=== PATIENT | female | born 1955 | race Caucasian/White ===

== ENCOUNTER → 2019-03-25 10:09 | Outpatient (CLI) | payer OTHER ==
[2015-10-07 09:29] VITALS: BMI 39.9
[~2019-03-25 10:09] MED LIST: ASPIRIN81 MG PO; GABAPENTIN100 MG PO; GLIMEPIRIDE2 MG PO; GLUCOPHAGE1000 MG PO; ISOSORBIDE MONO30 M1 PO; KLONOPIN0.5 MG PO; LOTRISONE CREAM45 GM TOPICAL; METOPROLOL TART50 MG PO; NORVASC10 MG PO; PLAVIX75 MG PO; PRAVACHOL20 MG PO; PROVENTIL HFA6.7 GM INH; PROZAC40 MG PO; SPIRIVA18 MCG INH; SYMBICORT 80-10.2 GM INH; TRULICITY1.5 MG/0.5 SC; WELLBUTRIN SR150 MG PO; ZESTRIL40 MG PO
--- NOTE | 2019-04-01 14:07 | EC ---
PATIENT:EFREN LERNER FIELDING DATE OF SERVICE: 03/25/19 SEX: F MEDICAL RECORD: [id number] DATE OF : 57 [facility]GE [facility] PATIENT: 63 ADMISSION DATE: 03/25/19 REFERRING PHYSICIAN: INTERPRETING PHYSICIAN: SANJANA PEREZ MD ECHOCARDIOGRAM REPORT ECHO CHARGES 4 ECHO COMPLETE Date: 03/25/19 CLINICAL DIAGNOSIS: ANGINA/SOB/QUEVEDO/MR H/O CAD/HTN ECHOCARDIOGRAPHIC MEASUREMENTS (adult normal given) AC root (d.<3.7cm) 2.9 cm LV Septum d (<1.2 cm> 1.3 cm Valve Excursion 1.0 cm LV Septum (systole) 1.7 cm Left Atria (s.<4.0cm> 3.0 cm LVPW d(<1.2cm) 1.5 cm RV (d.<2.3cm) 2.8 cm LVPW (sytole) 1.5 cm LV diastole(<5.6CM) 5.1 cm MV E-F(>70mm/sec) cm LV systole 2.9 cm LVOT Diameter 1.8 cm MV exc.(>10mm) cm Est.ejection fraction (50-75%) % DOPPLER: LVIT cm/sec A 129 cm/sec E 91.0 cm/sec LA cm/sec RVSP 22.0 mmHg LVOT 80.0 cm/sec AOP1/2T m/s Asc. Ao 287 cm/sec RVOT 72.0 cm/sec RA cm/sec PA 94.0 cm/sec AV Gradient Peak 33.0 mmHg AV Mean 17.0 mmHg AV Area 0.7 cm MV Gradient Peak 6.6 mmHg MV Mean 2.2 mmHg MV Area cm COMMENTS: OP - HC Aging Room Hand: 1 YENNI ISHAN Airplane Pilot Supervisor: 1 Dr. Perez TAPE# PACS Pericardial Effusion N DATE OF SERVICE: FINDINGS: 1. Left ventricular chamber size is within normal limits. Left ventricular systolic function is normal. Overall ejection fraction estimated at 60% to 65%. 2. Left atrium, right atrium, and right ventricular chamber sizes are within normal limits. 3. Valvular structures: Aortic valve demonstrates anch-ku-ewhhnjim calcific aortic stenosis, valve area calculates to 0.7 cm-squared with gradient of 33 mmHg across the valve. The remaining valvular structures have normal structure ECHOCARDIOGRAM REPORT [id number] EFREN LERNER FIELDING and motion. 4. Doppler interrogation elsewise reveals mild mitral regurgitation. No other valvular insufficiency or stenosis. Pulmonary systolic pressure is estimated at 22 mmHg. 5. No evidence of pericardial effusion or left ventricular thrombus. TRANSINT:[id number] Voice Confirmation ID: [id number] DOCUMENT ID: [id number] SANJANA PEREZ MD at 1407 CC: [id number] DICTATION DATE: 03/25/19 1604 INSURANCE AUDITOR: 03/26/19 0012 DEP CLI 03/25/19 [facility] [address] [id number]
--- NOTE | 2019-04-01 14:07 | ST ---
PATIENT:EFREN LERNER MEDICAL RECORD: [id number] SEX: F LOCATION:[facility] ORDER #: ADMISSION DATE: 03/25/19 AGE OF PATIENT: 63 REFERRING PHYSICIAN: INTERPRETING PHYSICIAN: SANJANA RESTREPO MD DATE OF SERVICE: 03/25/2019 PROCEDURE: Nuclear stress test INDICATION: Angina and coronary artery disease, shortness of breath, hypertension. She was exercised on standard Lexiscan protocol with 33 mCi of sestamibi injected at peak stress, 11 mCi used previously for rest images. FINDINGS: Gated SPECT reveals a preserved ejection fraction at 65% with decreased thickening and brightening throughout the inferior segments. SPECT imaging Cardiolite was used as myocardial perfusion agent. There is a fixed perfusion defect inferiorly and apically compatible with previous inferoapical myocardial infarction. There is reversibility laterally. This includes the basal, mid, apical, lateral segments. The degree of reversibility is mild to moderate. The amount of myocardium involved between the 2 defects is large. OVERALL IMPRESSION: This is an intermediate risk abnormal nuclear stress test with reversible ischemia laterally, fixed perfusion defect inferiorly and apically compatible with multivessel coronary artery disease. TRANSINT:[id number] Voice Confirmation ID: [id number] DOCUMENT ID: [id number] SANJANA RESTREPO MD at 1407 CC: DANO BONILLA [id number] DICTATION DATE: 03/25/19 1609 DIRECTOR TRAFFIC AND PLANNING: 03/26/19 0438 DEP CLI 03/25/19 [id number] [place] [id number]
== END | disposition home or self-care (01) ==
LOC: D.HCCECHO 10:09
PROVIDERS: ATTEND Internal Medicine Interventional Cardiology
DX: I25.119 Atherosclerotic heart disease of native coronary artery with unspecified angina pectoris (principal); I10 Essential (primary) hypertension

== ENCOUNTER 2019-04-01 07:34 | Outpatient (CLI) | payer OTHER ==
[~2019-04-01] VITALS: Ht 175.3 cm; Wt 109.1 kg
--- NOTE | ~2019-04-01 | HEMODYNAMI ---
PATIENT:EFREN LERNER MEDICAL RECORD: [id number] : 57 [facility] ADMISSION DATE: 04/01/19 Generatedon:04/01/201910:40 Patient name: EFREN LERNER Patient #: [id number] SSN: [id number] : 1955 Date of study: 04/01/2019 Page: Of Hemodynamic Procedure Report Patient Data Patient Demographics Procedure consent was obtained First Name: EFREN Gender: Female Last Name: EDUARDA : 1955 Middle Initial: FIELDING Age: 63 year(s) Patient #: [id number] Race: SSN: [id number] Additional ID: [id number] Contact details Address: [place] [address] State: [place] City: [place] Zip code: [address] Past Medical History History of disease Date Diagnosis Comments COPD Diabetes Hypertension Allergies Allergen Reaction Date Comments Reported Other allergy 04/01/2019 pcn BACTRIM Admission Admission Data Admission Date: 04/01/2019 Admission Time: 7:34 Arrival Date: 04/01/2019 Arrival Time: 0:00 Insurance Payor: Private health insurance [facility] #: [id number] Height (in.): 26.77 BSA: 1.18 (m2) Height (cm.): 68 BMI: 262.9 (kg/m2) Weight (lbs.): 268 Weight (kg.): 121.56 Lab Results Lab Result Date: 04/01/2019 Lab Result Time: 0:00 Biochemistry Name Units Result Min Max BUN mg/dl 16 --(---*)-- 7 18 Creatinine mg/dl 0.6 --(*---)-- 0.6 1.3 eGFR ml/min 90 --(*---)-- 90 120 NONAFRICAN CBC Name Units Result Min Max Hematocrit % 39.4 -*(----)-- 42 54 Hemoglobin g/dl 12.3 *-(----)-- 13.5 17.5 Procedure Procedure Types Cath Procedure Diagnostic Procedure [facility] w/Coronaries Sedation Charges Moderate Sedation up to 15 minutes Procedure Description Procedure Date Procedure Date: 04/01/2019 Procedure Start Time: 10:10 Procedure End Time: 10:33 Procedure Staff Name Function Reny Delcid RN Valve Machine Operator Jason Perez MD Performing Physician Jacinda Gambino RT Monitor Theresa Salazar RT Monitor Amanda Cornejo RT Scrub Tre Perez RT Scrub Jewell Dalton RN Nurse Indication Angina Severe mitral regurgitation Procedure Data Cath Procedure Fluoroscopy Diagnostic fluoroscopy Total fluoroscopy Time: 8.9 time: 8.9 min min Diagnostic fluoroscopy Total fluoroscopy dose: 957 dose: 957 mGy mGy Contrast Material Contrast Material Type Amount (ml) Isovue 300 89 Entry Location Entry Primary Successful Side Size Upsize Upsize Entry Closure Fajardo ccessful Closure Location (Fr) 1 (Fr) 2 (Fr) Remarks Device Remarks Radial Right 6 Fr Mechanical artery Short Compression Estimated blood loss: 5 ml Diagnostic catheters Device Type Used For End Catheter Placement DIAGNOSTIC Julian 110cm 5 Procedure Fr catheter ([id number]) DIAGNOSTIC Pigtail 5Fr Procedure catheter ([id number]) Procedure Complications No complications Procedure Medications Medication Administration Route Dosage Oxygen etCO2 Nasal cannula 2 l/min Lidocaine 2% added to field 20 Heparin Flush Bag added to field 2 bags (1000units/500ml NS) Radial Cocktail I.A. 1 syringe (Verapamil 2mg/Nitro 400mcg/Heparin 1500units) Versed I.V. 1 mg Fentanyl I.V. 50 mcg Versed I.V. 1 mg Fentanyl I.V. 50 mcg Versed I.V. 1 mg Fentanyl I.V. 50 mcg Hemodynamics Rest BSA: 1.18 (m2) HGB: 12.3 (g/dl) O2 Consumption: Estimated: 102.49 (ml/min) O2 Co nsumption indexed: Estimated:86.86 (ml/min/m) Heart Rate: 50 (bpm) Snapshots Pre Cath Intra NCS Post Cath Vital Signs Time Heart Resp SPO2 etCO2 NIBP (mmHg) Rhythm Pain Sedation Rate (ipm) (%) (mmHg) Status Level (bpm) 9:51:55 64 25 97 36.3 161/84(130) NSR 0 (11) 10(A) , No pain 9:56:30 63 19 96 33.3 145/80(125) NSR 0 (11) 10(A) , No pain 10:00:52 64 17 93 45.3 125/70(105) NSR 0 (11) 10(A) , No pain 10:05:14 63 19 94 47.7 124/73(103) NSR 0 (11) 10(A) , No pain 10:09:36 63 10 94 45.4 132/73(109) NSR 0 (11) 10(A) , No pain 10:13:54 63 16 92 46.9 119/68(95) NSR 0 (11) 9(A) , No pain 10:18:08 64 16 94 40.8 102/61(80) NSR 0 (11) 9(A) , No pain 10:22:24 65 17 93 40.1 104/63(85) NSR 0 (11) 9(A) , No pain 10:26:42 65 16 94 40.8 106/60(84) NSR 0 (11) 10(A) , No pain 10:31:00 64 15 93 43.9 122/64(100) NSR 0 (11) 10(A) , No pain Medications Time Medication Route Dose Verified Delivered Reason Notes Effectiveness by by 9:51:58 Oxygen etCO2 2 l/min Jason Corcoran used for Nasal Chris Dalton RN procedure cannula 9:52:04 Lidocaine 2% added 20ml Jason Gomez for local to vial Chris Perez MD anesthetic field 9:52:10 Heparin Flush added 2 bags Jason Gomez used for Bag to Chris Perez MD procedure (1000units/500ml field NS) 10:10:44 Versed I.V. 1 mg Jason Corcoran for sedation Chris Dalton RN 10:10:50 Fentanyl I.V. 50 mcg Jason Corcoran for sedation Chris Dalton RN 10:14:15 Radial Cocktail I.A. 1 Jason Gomez for (Verapamil syringe Chris Perez MD vasodilation 2mg/Nitro 400mcg/Heparin 1500units) 10:14:25 Versed I.V. 1 mg Jason Corcoran for sedation Chris Dalton RN 10:14:29 Fentanyl I.V. 50 mcg Jason Corcoran for sedation Chris Dalton RN 10:21:20 Versed I.V. 1 mg Jason Corcoran for sedation Chris Dalton RN 10:21:24 Fentanyl I.V. 50 mcg Jason Corcoran for sedation Chris Dalton RN Procedure Log Time Note 9:41:47 Reny Delcid RN sent for patient. Start room use. 9:42:09 Informed consent obtained and on chart 9:45:08 Patient received from Pre/Post Procedure Room to CCL 1 Alert and oriented. Tansferred to table in Supine position. 9:45:10 Warm blankets applied, and saadia hugger turned on for patient comfort. 9:45:11 Correct patient and procedure confirmed by team. 9:45:13 ECG and BP/O2 sat monitors applied to patient. 9:45:34 H&P Date Dictated: 03/09/2019 Within 30 days and on chart., H&P Addendum completed by physician on day of procedure. (MUST COMPLETE FOR ALL OUTPATIENTS). 9:46:03 Patient allergic to Other allergypcn BACTRIM 9:46:56 Lab Result : BUN 16 mg/dl 9:46:56 Lab Result : Creatinine 0.6 mg/dl 9:46:56 Lab Result : eGFR NONAFRICAN 90 ml/min 9:46:56 Lab Result : Hematocrit 39.4 % 9:46:56 Lab Result : Hemoglobin 12.3 g/dl 9:48:02 Stress Test: yes; abnormal MULTIVESSEL 9:48:17 Snore? Yes 9:48:18 Sleep apnea? Yes 9:48:20 Deviated septum? No 9:48:21 Opens mouth fully? Yes 9:48:23 Sticks out tongue? Yes 9:48:43 Airway obstruction? Yes COPD 9:48:47 Dentures? Yes OUT 9:48:53 Previous problem with sedation/anesthesia? No ? 9:49:02 Is the patient allergic to Iodine/contrast media? No. 9:49:05 Was the patient premedicated? N/A 9:49:07 Is patient on blood thinner?No 9:49:11 Patient diabetic? Yes. 9:49:14 If diabetic: On Metformin? Yes 9:49:20 If on Metformin: Last Dose? 03/30/2019 9:49:26 Patient not . Patient is over age 55. 9:49:40 Modified Herminio's test Ulnar < 7 seconds 9:49:45 Patient pain scale 0/10 ?. 9:49:56 IV patent on arrival in left forearm with 0.9% NaCl at [facility]. 9:50:07 Lab results completed and on chart. 9:50:18 Right Radial & Right Groin area was prepped with chlora-prep and draped in sterile fashion 9:50:20 Alarms reviewed by R. N. 9:50:21 Sharps counted by scrub and verified by R.N. 9:50:29 Vital chart was started 9:50:38 Rhythm: sinus rhythm 9:50:39 Full Disclosure recording started 9:51:58 Oxygen 2 l/min etCO2 Nasal cannula was administered by Jewell Dalton RN; used for procedure; Verbal order read back and verified. 9:52:04 Lidocaine 2% 20ml vial added to field was administered by Jason Perez MD; for local anesthetic; Verbal order read back and verified. 9:52:10 Heparin Flush Bag (1000units/500ml NS) 2 bags added to field was administered by Jason Perez MD; used for procedure; Verbal order read back and verified. 9:53:13 Risk of Mortality: .1 9:53:19 Risk of blood transfusion: .2 9:53:24 Risk of VEL: 1.2 9:53:38 Use device set Radial Dx or PCI 9:53:43 Bag Decanter () opened to sterile field. 9:53:44 ACIST Manifold (67254) opened to sterile field. 9:53:46 ACIST Hand Control (23070) opened to sterile field. 9:53:47 Medline Cath Pack ([id number]) opened to sterile field. 9:53:48 Tegaderm 4 x 4 (1626W) opened to sterile field. 9:53:51 ACIST Syringe (14574) opened to sterile field. 9:53:58 SHEATH 6FR RAIN (0675587) opened to sterile field. 9:53:59 EMERALD Guide Wire (540-470) opened to sterile field. 9:54:02 MBrace Wrist Support ([id number]) opened to sterile field. 9:56:15 Arrival Date: 04/01/2019 12:00:00 AM 9:56:25 Insurance Payor : Private health insurance 9:56:58 Patient Height : 26.77 inches 9:57:09 Patient Weight : 268 lbs 9:57:29 Diagnostic Cath Status : Elective 9:58:01 Indication : Angina 9:58:26 Indication : Severe mitral regurgitation 9:59:47 ACC Patient presents with Stable Angina CCS Anginal Class 3--Marked limitation of physical activity, angina occurs with ordinary activity.. 10:01:08 ACCPatient has been prescribed/administered the following anti-anginal medication within the last 2 weeks: Beta Keenan, Calcium Channel Blockers 10::44 Zero performed for pressure channel P1 10::08 Time tracking: Regular hours (M-F 7:00 - 5:00) 10:07:13 Procedure Status Elective Heart Cath (OP). 10:07:18 Plan of Care:Hemodynamics will remain stable., Cardiac rhythm will remain stable., Comfort level will be maintained., Respiratory function will remain adequate., Patient/ family verbilizes understanding of procedure., Procedure tolerated without complication., Recovers from procedure without complications.. 10:08:08 Baseline sample Acquired. 10:09:03 --------ALL STOP TIME OUT------ 10:09:04 Final Timeout: patient, procedure, and site verified with staff and physician. All members of the team are in agreement. 10:09:07 Right Radial & Right Groin site verified by team. 10:09:12 Fire Safety Assessment: A--An alcohol-based skin anteseptic being used preoperatively., C--Open oxygen or nitrous oxide is being used., D--An ESU, laser, or fiber-optic light is being used. 10:09:22 Physical assessment completed. ASA score P 2 - A patient with mild systemic disease as per Jason Perez MD. 10:09:25 1) 90+ Normal kidney functon but urine findings or structural abnormalities or genetic trait point to kidney disease. 10:09:28 Maximum allowable contrast dose (3.7 X eGFR X 0.75)250 ml. 10:09:33 Sedation plan: IV Moderate Sedation Medication:Versed, Fentanyl 10:09:39 Procedure started. 10:10:17 Local anesthetic to right radial artery with Lidocaine 2% by Jason Perez MD.INITIAL ACCESS ONLY 10:10:27 Baseline sample Acquired. 10:10:44 Versed 1 mg I.V. was administered by Jewell Dalton RN; for sedation; Verbal order read back and verified. 10:10:50 Fentanyl 50 mcg I.V. was administered by Jewell Dalton RN; for sedation; Verbal order read back and verified. 10:14:15 Radial Cocktail (Verapamil 2mg/Nitro 400mcg/Heparin 1500units) 1 syringe I.A. was administered by Jason Perez MD; for vasodilation; Verbal order read back and verified. 10:14:15 A 6 Fr Short sheath was inserted into the Right Radial artery 10:14:25 Versed 1 mg I.V. was administered by Jewell Dalton RN; for sedation; Verbal order read back and verified. 10:14:29 Fentanyl 50 mcg I.V. was administered by Jewell Dalton RN; for sedation; Verbal order read back and verified. 10:14:36 A DIAGNOSTIC Julian 110cm 5 Fr catheter (102252) was advanced over the wire and used for Procedure. 10:19:46 RCA angiography performed. 10:19:56 ACCDominant side:Right 10:20:55 Catheter exchanged over wire. 10:21:17 GUIDE 6FR EBU 3.5 catheter ([id number]) opened to sterile field. 10:21:20 Versed 1 mg I.V. was administered by Jewell Dalton RN; for sedation; Verbal order read back and verified. 10:21:24 Fentanyl 50 mcg I.V. was administered by Jewell Dalton RN; for sedation; Verbal order read back and verified. 10:22:37 A DIAGNOSTIC Pigtail 5Fr catheter ([id number]) was advanced over the wire and used for Procedure. 10:23:11 Catheter exchanged over wire. 10:23:34 EBU 3.5 CROSSED VALVE WITH WIRE 10:23:45 UNBALE TO CROSS VALVE FOR LV 10:23:59 6 Fr EBU 3.5 guide catheter was inserted over the wire 10:25:39 LV gram done using VAZQUEZ 10:25:48 Injector settings: Ml/sec: 5, Volume: ?, 10:25:51 Injector settings: Ml/sec: 4, Volume: 8, 10:25:59 EF : 60 % 10:26:29 Guide Catheter removed. unable to cannulate vessel. 10:27:07 GUIDE 6FR EBU 3.0 catheter ([id number]) opened to sterile field. 10:27:25 6 Fr EBU 3.0 guide catheter was inserted over the wire 10:28:17 LCA angiography performed. 10:28:24 Catheter removed. 10:28:33 Procedure ended.(Physican Out) 10:28:41 Fluoroscopy time 08.90 minutes. 10:29:05 Flurop Dose total: 957 10:29:05 Fluoroscopy dose: 957 mGy 10:29:08 Dose Area Product ? mGy/cm. 10:29:14 Dose Area Product 83674 mGy/cm. 10:29:22 Contrast amount:Isovue 300 89ml. 10:29:31 ZEPHYR REGULAR TR BAND (464990) opened to sterile field. 10:29:53 Sheath removed intact; hemostasis achieved with Mechanical Compression to the Right Radial artery. 10:29:58 Maximum allowable dose exceeded? No. 10:29:59 Sharps counted by scrub and verified by R.N. 10:30:06 [place] band inflated with 10cc of air. 10:30:21 Insertion/operative site no bleeding no hematoma. 10:30:34 Post-procedure physical assessment completed. ASA score P 2 - A patient with mild systemic disease as per Jason Perez MD. 10:30:43 Post procedure rhythm: sinus rhythm 10:30:48 Estimated blood loss: 5 ml 10:30:50 Post procedure instruction explained to patient.Patient verbalizes understanding. 10:30:51 Patient needs reinforcement of post procedure teaching. 10:31:47 Procedure type changed to Cath procedure, Diagnostic procedure, [facility], [facility] w/Coronaries, Sedation Charges, Moderate Sedation up to 15 minutes 10:33:00 Procedure and supply charges have been captured, reviewed, submitted and are correct. 10:33:11 Procedure Complication : No complications 10:33:13 Vital chart was stopped 10:33:19 [facility] Findings: mild to moderate CAD (<70%) 10:33:23 Operative report dictated upon procedure completion. 10:33:25 See physician's report for complete and final results. 10:33:27 Report given to Pre/Post Procedure Room. 10:33:32 Patient transfered to Pre/Post Procedure Room with Stretcher. 10:33:34 Procedure ended. 10:33:34 Full Disclosure recording stopped 10:33:40 End room use (Document Last) Device Usage Item Name Manufacture Quantity Catalog Hospital Part Current Minima l Lot# / Number Charge Number Stock Stock Serial# Code Bag Microtek 1 [id number] 01084 031345 5 Decanter Medical Inc. () ACIST Acist 1 16267 833265 314981 145364 5 Manifold Medical (02264) Systems Inc ACIST Hand Acist 1 86113 327801 174616 859693 5 Control Medical (77837) Systems Inc Medline Medline 1 [id number] 63630 919676 5 Cath Pack ([id number]) Tegaderm 4 3M 1 1626W 103980 912448 436811 5 x 4 (1626W) ACIST Acist 1 01950 328169 502541 024981 20 Syringe Medical (28631) Systems Inc SHEATH 6FR Cardinal 1 8296213 333289 9681241 261761 5 RAIN Health (8497792) EMERALD Cardinal 1 502455 760548 275144 003086 5 Guide Wire Health (502455) MBrace Advanced 1 140-0250-00 877448 13606 916011 5 Wrist Vascular Support Dynamics ([id number]) DIAGNOSTIC Terumo 1 40-5013 372039 312006 937043 5 Julian 110cm 5 Fr catheter (201448) GUIDE 6FR Medtronic 1 [id number] 593928 80989 582021 3 EBU 3.5 catheter ([id number]) DIAGNOSTIC Cardinal 1 [id number] 103784 676014 985004 5 Pigtail 5Fr Health catheter (530038G) GUIDE 6FR Medtronic 1 [id number] 039807 71487 382573 0 EBU 3.0 catheter ([id number]) ZEPHYR Cardinal 1 906232 747488 9449652 853794 5 REGULAR TR Health BAND (600275) Signature Audit [place] Stage Time Signature Unsigned Intra-Procedure 04/01/2019 Jacinda Gambino 10:39:25 AM RT(R) Intra-Procedure 04/01/2019 Jewell Dalton RN 10:40:13 AM Intra-Procedure 04/01/2019 Jason Perez 10:40:41 AM [address] [place] [address]
[~2019-04-01 07:34] MED LIST changes: -GABAPENTIN100 MG PO; -ISOSORBIDE MONO30 M1 PO; -NORVASC10 MG PO; -SPIRIVA18 MCG INH; -TRULICITY1.5 MG/0.5 SC
[2019-04-01] MEDS ORDERED: GABAPENTIN100 MG PO (08:31)
[2019-04-01] MEDS ORDERED: SPIRIVA18 MCG INH (08:32)
[2019-04-01] MEDS ORDERED: NORVASC10 MG PO (08:33)
[2019-04-01] MEDS ORDERED: TRULICITY1.5 MG/0.5 SC (08:33)
[2019-04-01 08:45] VITALS: BP 148/68; Ht 175.3 cm; Wt 109.1 kg
[2019-04-01 08:45] LABS: BASOPHILS 0.2 % (0-2); EOSINOPHILS 4.6 % (0-7); HEMATOCRIT 39.4 % (36.0-48.0); HEMOGLOBIN 12.3 g/dL (12-16); IMMATURE GRANULOCYTES 0.4 % (0-5); LYMPHOCYTES 35.7 % (15-50); MCH 26.4 pg (26.0-34.0); MCHC 31.2 g/dL (31.0-37.0); MCV 84.5 fL (80.0-100.0); MONOCYTES 7.8 % (2-11); NEUTROPHILS 51.3 % (40-80); PLATELET COUNT 199 10x3/uL (130-400); RBC 4.66 10x6/uL (4.00-5.40); RDW 14.5 % (11.5-14.5); WBC 4.6 10x3/uL (4.8-10.8)
[2019-04-01 08:48] LABS: CALC OSMOLALITY 276 mosm/kg (275-300); CALCIUM 8.7 mg/dL (8.5-10.1); CARBON DIOXIDE 25.8 mmol/L (21.0-32.0); CHLORIDE - SERUM 103 mmol/L (98-107); CREATININE - SERUM 0.6 mg/dL (0.6-1.3); GLUCOSE 93 mg/dL (74-106); POTASSIUM - SERUM 4.6 mmol/L (3.5-5.1); SODIUM 138 mmol/L (136-145); UREA NITROGEN 16 mg/dL (7-18); eGFR NON AFRICAN AMERICAN > 90 mL/min (90-120)
[2019-04-01 09:00] LABS: ALT (SGPT) 33 U/L (10-68); CHOL - HDL RATIO 4.1 ratio (2.3-4.1); CHOLESTEROL, TOTAL 164 mg/dL (0-200); HDL CHOLESTEROL 40 mg/dL (32-96); LDL CHOLESTEROL 85 mg/dL (0-100); LDL-HDL RATIO 2.1 ratio (1.5-3.5); TRIGLYCERIDE 199 mg/dL (30-200)
--- NOTE | 2019-04-01 10:46 | NUR ---
PT RECEIVED VIA STRETCHER FROM DEEP WELL CONTRACTOR FOR RECOVERY. PT SLEEPY BUT VERBALLY AROUSABLE. PT PLACED ON CARDIAC MONITORS, O2 ON AT 2L/NC. IV PATENT INFUSING VIA ORDERS. HR NSR RATE 71, BP 114/72, RR 13, SAT 95. ZYPHER BAND AND IMMOBILIZE RIN PLACE TO R WRIST. DRESSING CDI NO BLEEDING OR HEMATOMA NOTED. ARM WARM AND PINK, CAP REFILL BRISK. CALL LIGHT IN REACH, AT BEDSIDE. PT DENIES PAIN OR DISCOMORT.
--- NOTE | 2019-04-01 11:15 | NUR ---
PT SITTING UP IN BED DRINKING COFFEE. PT DENIES PAIN OR NEEDS. SANDWICH TRAY SERVED. ZBAND IN PLACE, DRESSING REMAINS CDI NO BLEEDING OR SWELLING NOTED. CALL LIGHT IN REACH, AT BEDSIDE
--- NOTE | 2019-04-01 11:55 | NUR ---
DR RESTREPO AT BEDSIDE, SPOKE WITH PT AND REGARDING PLAN OF CARE AND PROCEDURE RESULTS. 3 ADD'L CC AIR REMOVED FROM Z BAND, NO BLEEDING OR SWELLING NOTED. VSS. PT DENIES PAIN OR NEEDS AT THIS TIME. CALL LIGHT IN REACH
[2019-04-01] MEDS ORDERED: ISOSORBIDE MONO30 M1 PO (12:03)
--- NOTE | 2019-04-01 12:20 | NUR ---
DISCHARGE INSTRUCTIONS REVIEWED W PT SHE VERBALIZED UNDERSTANDING. IV REMOVED W CATH INTACT, MONITORS REMOVED AND PT UP TO DRESS FOR DISCHARGE. R WRIST W/O BLEEDING OR SWELLING.
--- NOTE | 2019-04-01 12:35 | NUR ---
Z BAND AND REMAINING AIR REMOVED W/O BLEEDING. SITE CLEANED AND 2X2 AND TEGADERM DRESSING APPLIED. PT TO BR VIA WC, VOIDING W/O DIFFICULITY. 1245 PT DISCHARGED VIA WC TO WAITING IN PRIVATE VEHICLE. PT HAD ALL BELONGINGS AND DISCHARGE INFORMATION
--- NOTE | 2019-04-01 14:08 | OP ---
PATIENT NAME: EFREN LERNER MEDICAL RECORD: [id number] :57 LOCATION:[facility] ADMISSION DATE: SURGEON: SANJANA RESTREPO MD DATE OF OPERATION: 04/01/2019 PROCEDURES: 1. Left heart catheterization. 2. Selective coronary angiography. 3. Left ventriculogram. INDICATIONS: Angina, coronary artery disease, previous left main stenting, abnormal nuclear stress test. PROCEDURE IN DETAIL: After informed consent was obtained and after a detailed explanation of risks, benefits as well as alternative therapies, the patient elected to proceed with angiogram and heart catheterization. The right radial area was prepped and draped in normal sterile fashion. Right radial artery was cannulated via modified Seldinger technique with placement of 6-Croatian sheath. All catheters exchanged through this sheath. FINDINGS: Left ventriculogram was performed in a standard 30-degree VAZQUEZ view, reveals good cardiac wall motion, ejection fraction of 65%. SELECTIVE CORONARY ANGIOGRAPHY: 1. Left main showed no significant angiographic disease. Previously placed stent is widely patent. 2. Left anterior descending has tzui-sv-doqtkfzc irregularities, but no flow-limiting stenosis. 3. The left circumflex has moderate diffuse disease, but no flow-limiting stenosis. 4. Right coronary has moderate diffuse disease, but no discrete flow-limiting stenosis. OVERALL IMPRESSION: Wide patency of the previously placed stent in the left main, moderate diffuse disease elsewise. This gives the chronic stable anginal picture. Standard medical management and treatment of the chronic stable angina. TRANSINT:[id number] Voice Confirmation ID: [id number] DOCUMENT ID: [id number] SANJANA RESTREPO MD at 1408 CC: [id number] DICTATION DATE: 04/01/19 1032 CURRICULUM FACILITATOR: 04/01/19 1051 DEP CLI 04/01/19 [place] [id number]
== END 2019-04-01 12:45 | disposition home or self-care (01) ==
LOC: D.CATH 07:34
PROVIDERS: ATTEND Internal Medicine Interventional Cardiology
DX: I25.110 Atherosclerotic heart disease of native coronary artery with unstable angina pectoris (principal); R94.30 Abnormal result of cardiovascular function study, unspecified; R06.02 Shortness of breath